=== PATIENT | male | born 1990 | race Caucasian/White ===

== ENCOUNTER 2019-06-20 10:24 | Inpatient (IN) | payer BC ==
[~2019-06-20] VITALS: Ht 175.3 cm; Wt 93.2 kg
[~2019-06-20 10:24] MED LIST: ALBU8HFA PO
[2019-06-20 11:00] LABS: CLARITY,URINE CLOUDY (Clear); COLOR,URINE AMBER (Yellow); GLUCOSE, URINE NEGATIVE (Neg); KETONES,URINE >=80 mg/dl (Neg); LEUKOCYTE ESTERASE ,URINE NEGATIVE (Neg); OCCULT BLOOD,URINE NEGATIVE (Neg); PROTEIN,URINE >=300 mg/dl (Neg)
[2019-06-20 11:01] LABS: NITRITES, URINE NEGATIVE (Neg); UA COLLECTION TYPE CLN CATCH MIDSTREAM
[2019-06-20 11:05] LABS: BASOPHILS % (AUTO) 0.2 % (0-1); EOSINOPHILS % (AUTO) 0 % (0-6); HEMATOCRIT 48.6 % (42.0-52.0); HEMOGLOBIN 17.2 g/dl (14.0-17.9); LYMPHOCYTES # (AUTO) 0.7 X10'3 (1.1-4.8); LYMPHOCYTES % (AUTO) 4.2 % (21-51); MEAN CORPUSCULAR HEMOGLOBIN 34.5 PG (27.0-31.0); MEAN CORPUSCULAR HGB CONC 35.4 g/dL (33.0-36.5); MEAN CORPUSCULAR VOLUME 97.3 FL (78-98); MEAN PLATELET VOLUME 7.9 FL (7.4-10.4); MONOCYTES # (AUTO) 1.1 X10'3 (0-0.9); MONOCYTES % (AUTO) 6.4 % (2-12); NEUTROPHILS # (AUTO) 15.1 X10'3 (1.8-7.7); NEUTROPHILS % (AUTO) 89.2 % (42-75); PLATELET COUNT 261 X10'3 (140-440); RED CELL DISTRIBUTION WIDTH 13.2 % (11.5-14.5)
[2019-06-20 11:07] LABS: COARSE GRANULAR CAST 0-3 /LPF (NEGATIVE); MUCUS STRANDS MANY /LPF (Neg); SQUAMOUS EPITHELIAL CELL,UR FEW /LPF (FEW)
[2019-06-20 11:08] LABS: BACTERIA,URINE NONE SEEN /HPF (Neg); RBC,URINE 0-2 /HPF (0-2); TRANSITIONAL EPI CELLS,URINE FEW /HPF; WBC,URINE 0-4 /HPF (0-4)
[2019-06-20 11:14] LABS: ALANINE AMINOTRANSFERASE 33 U/L (12-78); ALBUMIN 4.7 G/DL (3.4-5.0); ALBUMIN/GLOBULIN RATIO 1.3 (1.1-1.5); ALKALINE PHOSPHATASE 100 IU/L (46-116); ANION GAP 17 (8-16); ASPARTATE AMINO TRANSFERASE 24 U/L (10-37); BILIRUBIN,TOTAL 2.4 MG/DL (0.1-1.0); BLOOD UREA NITROGEN 20 MG/DL (7-18); BUN/CREATININE RATIO 18.2 (5.4-32.0); CHLORIDE 97 MMOL/L (99-107); GLUCOSE 131 MG/DL (70-104); POTASSIUM 4.1 MMOL/L (3.5-5.1); SODIUM 136 MMOL/L (135-145); TOTAL CARBON DIOXIDE 22.2 MMOL/L (24-32); TOTAL PROTEIN 8.3 G/DL (6.4-8.2); eGFR 80 ML/MIN
[2019-06-20 11:16] LABS: AMYLASE 291 U/L (25-115)
[2019-06-20] MEDS ORDERED: normal saline 1000ML IV soln IVB ONE (11:20)
[2019-06-20] MEDS ORDERED: ketorolac trometh. 30mg/ml inj. IV ONE (11:20)
[2019-06-20] MEDS ORDERED: morphine 4 MG/ML inj SYRINge IV PRN (11:20)
[2019-06-20] MEDS ORDERED: ondansetron/PF 4mg/2ml inj IV ONE (11:20)
[2019-06-20 11:25] LABS: LIPASE 4797 U/L (73-393)
[2019-06-20] MEDS ORDERED: piperacillin/tazo 3.375gm/50ml 50 ML IV ONE (11:50)
[2019-06-20] MEDS ORDERED: morphine 4 MG/ML inj SYRINge IV ONE (11:50)
[2019-06-20] MEDS ORDERED: acetaminophen 325mg tablet PO PRN (12:05)
[2019-06-20] MEDS ORDERED: metoclopramide 5 mg/ml inj IV PRN (12:05)
[2019-06-20] MEDS: normal saline 1000ml 1,000 ML IV SCH ×3 (12:05→21:01)
[2019-06-20] MEDS ORDERED: mag hydrox/Alum hydrox/simeth 30ml oral suspension PO PRN (12:05)
[2019-06-20] MEDS ORDERED: ondansetron/PF 4mg/2ml inj IV PRN (12:05)
[2019-06-20] MEDS ORDERED: magnesium hydroxide 30ml (MOM) UD suspension PO PRN (12:05)
[2019-06-20] MEDS ORDERED: iohexol 300mg/ml 100ml inj. ONE (12:18)
[2019-06-20] MEDS ORDERED: NO HOME MEDS (12:32)
[2019-06-20] MEDS: pantoprazole 40 MG vial IV SCH (13:46)
[2019-06-20 14:10] VITALS: BP 154/94
--- NOTE | 2019-06-20 14:35 | NUR ---
Patient in room [facility]. I have received report from Jigna CARLIN and had the opportunity to ask questions and assume patient care.
--- NOTE | 2019-06-20 14:45 | NUR ---
Patient in room [facility]. I have received report from RAEGAN Grove and had the opportunity to ask questions and assume patient care.
[2019-06-20] MEDS: morphine 2 MG/ML inj. syringe IV PRN (16:59)
[2019-06-20] MEDS ORDERED: thiamine 100mg/ml 2ml inj. IV ONE (17:05)
[2019-06-20] MEDS ORDERED: dextrose 50%-water 50ml dispensing syringe IV PRN (17:05)
--- NOTE | 2019-06-20 17:23 | NUR ---
REVIEWED HOME MORTGAGE DISCLOSURE ACT SPECIALIST CHARTING
--- NOTE | 2019-06-20 17:44 | NUR ---
Patient report given, questions answered & plan of care reviewed with RAEGAN Grove.
[2019-06-20] MEDS ORDERED: thiamine inj. 100 MG in normal saline 100ml IV soln 99 ML IV ONE (17:45)
[2019-06-20 18:30] VITALS: BP 162/112
--- NOTE | 2019-06-20 18:30 | NUR ---
Patient in room [facility]. I have received report from Maine CARLIN and had the opportunity to ask questions and assume patient care. Addendum: 06/20/19 at 2146 by Alka Guerrero RN Day nurse advised that there was a thiamine order that still needed to be clarified by pharmacy that she was awaiting.
--- NOTE | 2019-06-20 19:00 | NUR ---
Pharmacy advised to infuse the thiamine in IV bag of NS.
[2019-06-20] MEDS: LORazepam 2 mg/ml vial IV PRN (19:05)
[2019-06-20] MEDS: heparin, porcine 5000 units/ml vial SQ SCH (19:19)
[2019-06-20] MEDS ORDERED: clonazePAM 0.5mg tablet PO ONE (20:20)
--- NOTE | 2019-06-20 20:21 | NUR ---
Patient has elevated BP which did not resolve with ativan earlier. New order for clonidine 0.5mg now.
[2019-06-20] MEDS ORDERED: cloNIDine 0.1 mg tablet PO ONE (20:30)
[2019-06-20 21:00] VITALS: BP 146/104
--- NOTE | 2019-06-20 21:50 | NUR ---
Patients' BP came down on recheck at 2100, BP 146/104, pulse 89. Will continue to monitor.
[2019-06-21] VITALS: BP 146/100
[2019-06-21] MEDS: morphine 2 MG/ML inj. syringe IV PRN ×6 (00:11→19:49)
[2019-06-21] MEDS: normal saline 1000ml 1,000 ML IV SCH ×3 (02:40→21:25)
[2019-06-21] MEDS: LORazepam 2 mg/ml vial IV PRN ×4 (02:58→19:51)
[2019-06-21 04:00] VITALS: BP 148/101
[2019-06-21 05:14] LABS: BASOPHILS % (AUTO) 0.1 % (0-1); EOSINOPHILS # (AUTO) 0.1 X10'3 (0-0.9); EOSINOPHILS % (AUTO) 1.3 % (0-6); HEMATOCRIT 39.2 % (42.0-52.0); HEMOGLOBIN 13.8 g/dl (14.0-17.9); LYMPHOCYTES # (AUTO) 1.1 X10'3 (1.1-4.8); LYMPHOCYTES % (AUTO) 11.9 % (21-51); MEAN CORPUSCULAR HEMOGLOBIN 34.8 PG (27.0-31.0); MEAN CORPUSCULAR HGB CONC 35.2 g/dL (33.0-36.5); MEAN CORPUSCULAR VOLUME 98.7 FL (78-98); MEAN PLATELET VOLUME 8.2 FL (7.4-10.4); MONOCYTES # (AUTO) 0.7 X10'3 (0-0.9); MONOCYTES % (AUTO) 7.1 % (2-12); NEUTROPHILS # (AUTO) 7.5 X10'3 (1.8-7.7); NEUTROPHILS % (AUTO) 79.6 % (42-75); PLATELET COUNT 151 X10'3 (140-440); RED BLOOD COUNT 3.97 X10'6 (4.70-6.10); WHITE BLOOD COUNT 9.4 X10'3 (4.5-11.0)
[2019-06-21 05:33] LABS: ALANINE AMINOTRANSFERASE 24 U/L (12-78); ALBUMIN 3.1 G/DL (3.4-5.0); ALKALINE PHOSPHATASE 66 IU/L (46-116); ANION GAP 10 (8-16); ASPARTATE AMINO TRANSFERASE 20 U/L (10-37); BILIRUBIN,TOTAL 1.1 MG/DL (0.1-1.0); BLOOD UREA NITROGEN 12 MG/DL (7-18); BUN/CREATININE RATIO 13.8 (5.4-32.0); CALCIUM 8.1 MG/DL (8.5-10.1); CHLORIDE 106 MMOL/L (99-107); CREATININE 0.87 MG/DL (0.60-1.10); GLUCOSE 87 MG/DL (70-104); POTASSIUM 3.5 MMOL/L (3.5-5.1); SODIUM 139 MMOL/L (135-145); TOTAL CARBON DIOXIDE 23.4 MMOL/L (24-32); TOTAL PROTEIN 6.1 G/DL (6.4-8.2); eGFR > 90 ML/MIN
--- NOTE | 2019-06-21 06:25 | NUR ---
Patient in room [facility]. I have received report from Destinee CARLIN and had the opportunity to ask questions and assume patient care. Addendum: 06/21/19 at 0639 by Maine Finn RN Patient in room [facility]. I have received report from Alka CARLIN and had the opportunity to ask questions and assume patient care.
--- NOTE | 2019-06-21 06:36 | NUR ---
Problems reprioritized. Patient report given, questions answered & plan of care reviewed with Maine CARLIN.
[2019-06-21] MEDS: pantoprazole 40 MG vial IV SCH (07:58)
[2019-06-21] MEDS: MVI, adult No.4 with vit. K 10 ML in dextrose 5% water 500ml 500 ML IV SCH ×2 (07:59)
[2019-06-21 08:00] VITALS: BP 154/113
[2019-06-21] MEDS ORDERED: NORMAL SALINE IV SCH (08:00)
[2019-06-21] MEDS ORDERED: thiamine inj. 100 MG, folic acid inj. 2 MG in normal saline 100ml IV soln 100 ML IV ONE (08:00)
[2019-06-21] MEDS: heparin, porcine 5000 units/ml vial SQ SCH ×2 (08:00→19:21)
[2019-06-21] MEDS ORDERED: FOLIC ACID IV SCH (08:00)
[2019-06-21] MEDS ORDERED: FLU VACC QS2019-20 36MOS UP/PF 60 MCG/0.5 ML SYRINGE IMVAC ONE (10:00)
[2019-06-21 11:00] VITALS: BP 154/101
--- NOTE | 2019-06-21 11:30 | NUR ---
Pt has blood pressure of 0800 154/113 HR 98 & 1100 154/[address] Plascencia is aware. Asked Dr. Plascencia if he wanted to give some HTN meds. does not want to treat because he feels is from ETOH withdraws.
--- NOTE | 2019-06-21 12:18 | NUR ---
Patient in room [facility]. I have received report from [place] and had the opportunity to ask questions and assume patient care. Addendum: 06/21/19 at 1218 by Jasbir CLEMENT Amended: Links added.
[2019-06-21 16:10] VITALS: BP 146/100
--- NOTE | 2019-06-21 16:36 | NUR ---
reviewed student nurse charting
--- NOTE | 2019-06-21 18:13 | NUR ---
Patient in room [facility]. I have received report from Maine CARLIN and had the opportunity to ask questions and assume patient care.
[2019-06-21 18:30] VITALS: BP 157/97
--- NOTE | 2019-06-21 18:34 | NUR ---
Problems reprioritized. Patient report given, questions answered & plan of care reviewed with Alka CARLIN.
[2019-06-22] VITALS: BP 141/105
[2019-06-22] MEDS: LORazepam 2 mg/ml vial IV PRN ×6 (01:16→17:00)
[2019-06-22] MEDS: normal saline 1000ml 1,000 ML IV SCH ×3 (01:16→17:00)
[2019-06-22 05:12] LABS: BASOPHILS % (AUTO) 0.2 % (0-1); EOSINOPHILS # (AUTO) 0.2 X10'3 (0-0.9); EOSINOPHILS % (AUTO) 2.3 % (0-6); HEMATOCRIT 38.1 % (42.0-52.0); HEMOGLOBIN 13.6 g/dl (14.0-17.9); LYMPHOCYTES # (AUTO) 1.4 X10'3 (1.1-4.8); LYMPHOCYTES % (AUTO) 15.1 % (21-51); MEAN CORPUSCULAR HEMOGLOBIN 34.8 PG (27.0-31.0); MEAN CORPUSCULAR HGB CONC 35.7 g/dL (33.0-36.5); MEAN CORPUSCULAR VOLUME 97.3 FL (78-98); MEAN PLATELET VOLUME 8.2 FL (7.4-10.4); MONOCYTES # (AUTO) 0.7 X10'3 (0-0.9); MONOCYTES % (AUTO) 7.5 % (2-12); NEUTROPHILS # (AUTO) 7.2 X10'3 (1.8-7.7); NEUTROPHILS % (AUTO) 74.9 % (42-75); PLATELET COUNT 164 X10'3 (140-440); RED BLOOD COUNT 3.91 X10'6 (4.70-6.10); RED CELL DISTRIBUTION WIDTH 12.7 % (11.5-14.5); WHITE BLOOD COUNT 9.6 X10'3 (4.5-11.0)
[2019-06-22 05:29] LABS: ALANINE AMINOTRANSFERASE 21 U/L (12-78); ALBUMIN 2.9 G/DL (3.4-5.0); ALBUMIN/GLOBULIN RATIO 0.9 (1.1-1.5); ALKALINE PHOSPHATASE 63 IU/L (46-116); ANION GAP 9 (8-16); ASPARTATE AMINO TRANSFERASE 15 U/L (10-37); BILIRUBIN,TOTAL 0.8 MG/DL (0.1-1.0); BLOOD UREA NITROGEN 3 MG/DL (7-18); BUN/CREATININE RATIO 3.9 (5.4-32.0); CALCIUM 8.5 MG/DL (8.5-10.1); CHLORIDE 104 MMOL/L (99-107); CREATININE 0.77 MG/DL (0.60-1.10); GLUCOSE 87 MG/DL (70-104); POTASSIUM 3.4 MMOL/L (3.5-5.1); SODIUM 137 MMOL/L (135-145); TOTAL CARBON DIOXIDE 24.2 MMOL/L (24-32); TOTAL PROTEIN 6.2 G/DL (6.4-8.2); eGFR > 90 ML/MIN
[2019-06-22 05:30] LABS: LIPASE 1878 U/L (73-393)
--- NOTE | 2019-06-22 06:33 | NUR ---
Problems reprioritized. Patient report given, questions answered & plan of care reviewed with Bobo gonsalves.
[2019-06-22] MEDS: MVI, adult No.4 with vit. K 10 ML in dextrose 5% water 500ml 500 ML IV SCH ×2 (07:08)
[2019-06-22] MEDS: heparin, porcine 5000 units/ml vial SQ SCH ×2 (07:08→19:32)
[2019-06-22] MEDS: pantoprazole 40 MG vial IV SCH (07:09)
[2019-06-22 07:36] VITALS: BP 144/99
[2019-06-22] MEDS: morphine 2 MG/ML inj. syringe IV PRN ×3 (08:26→19:33)
[2019-06-22] MEDS ORDERED: FLU VACC QS2019-20 36MOS UP/PF 60 MCG/0.5 ML SYRINGE IMVAC ONE (10:50)
[2019-06-22 11:00] VITALS: BP 150/106
[2019-06-22] MEDS ORDERED: magnesium 4gm in 100ml NS 100 ML IV PRN (11:30)
[2019-06-22] MEDS ORDERED: potassium Cl 20 mEq SR tablet PO PRN (11:30)
[2019-06-22] MEDS ORDERED: magnesium Cl slow-release 64mg tablet PO PRN (11:30)
[2019-06-22] MEDS ORDERED: potassium CL 10mEq/100ml bag 100 ML IV PRN (11:30)
[2019-06-22] MEDS ORDERED: nicotine 14mg patch - 24hr TD SCH (11:30)
[2019-06-22] MEDS: potassium Cl 20 mEq SR tablet PO PRN ×3 (13:01→22:14)
[2019-06-22] MEDS ORDERED: LORazepam 2 mg/ml vial IV PRN (17:05)
--- NOTE | 2019-06-22 18:18 | NUR ---
Patient in room [facility]. I have received report from Krystal CARLIN and had the opportunity to ask questions and assume patient care.
--- NOTE | 2019-06-22 18:21 | NUR ---
Problems reprioritized. Patient report given, questions answered & plan of care reviewed with RAEGAN Rucker.
[2019-06-22 18:30] VITALS: BP 151/112
[2019-06-22] MEDS: nicotine 21mg patch - 24 hr TD SCH (22:14)
[2019-06-22] MEDS: LORazepam 1 MG tablet PO PRN (22:14)
[2019-06-23] VITALS: BP 150/105
[2019-06-23] MEDS: normal saline 1000ml 1,000 ML IV SCH ×4 (00:14→22:01)
[2019-06-23] MEDS: morphine 2 MG/ML inj. syringe IV PRN ×3 (01:08→12:04)
[2019-06-23] MEDS: LORazepam 1 MG tablet PO PRN ×5 (04:19→23:03)
[2019-06-23 05:09] LABS: BASOPHILS % (AUTO) 0.1 % (0-1); EOSINOPHILS # (AUTO) 0.2 X10'3 (0-0.9); EOSINOPHILS % (AUTO) 2.8 % (0-6); HEMATOCRIT 38.2 % (42.0-52.0); HEMOGLOBIN 13.6 g/dl (14.0-17.9); LYMPHOCYTES # (AUTO) 1.5 X10'3 (1.1-4.8); MEAN CORPUSCULAR HEMOGLOBIN 35.1 PG (27.0-31.0); MEAN CORPUSCULAR HGB CONC 35.5 g/dL (33.0-36.5); MEAN CORPUSCULAR VOLUME 98.9 FL (78-98); MEAN PLATELET VOLUME 8.4 FL (7.4-10.4); MONOCYTES # (AUTO) 0.6 X10'3 (0-0.9); MONOCYTES % (AUTO) 7.7 % (2-12); NEUTROPHILS % (AUTO) 71.4 % (42-75); PLATELET COUNT 181 X10'3 (140-440); RED BLOOD COUNT 3.86 X10'6 (4.70-6.10); RED CELL DISTRIBUTION WIDTH 12.6 % (11.5-14.5); WHITE BLOOD COUNT 8.4 X10'3 (4.5-11.0)
[2019-06-23 05:22] LABS: ALANINE AMINOTRANSFERASE 19 U/L (12-78); ALBUMIN 2.8 G/DL (3.4-5.0); ALBUMIN/GLOBULIN RATIO 0.8 (1.1-1.5); ALKALINE PHOSPHATASE 79 IU/L (46-116); ANION GAP 8 (8-16); ASPARTATE AMINO TRANSFERASE 22 U/L (10-37); BILIRUBIN,TOTAL 0.5 MG/DL (0.1-1.0); BLOOD UREA NITROGEN 4 MG/DL (7-18); BUN/CREATININE RATIO 4.5 (5.4-32.0); CALCIUM 8.6 MG/DL (8.5-10.1); CHLORIDE 105 MMOL/L (99-107); CREATININE 0.88 MG/DL (0.60-1.10); GLUCOSE 85 MG/DL (70-104); POTASSIUM 4.2 MMOL/L (3.5-5.1); SODIUM 139 MMOL/L (135-145); TOTAL PROTEIN 6.3 G/DL (6.4-8.2); eGFR > 90 ML/MIN
--- NOTE | 2019-06-23 06:49 | NUR ---
Reported off to Kristie CARLIN
--- NOTE | 2019-06-23 06:53 | NUR ---
Patient in room [facility]. I have received report from Alka CARLIN and had the opportunity to ask questions and assume patient care.
[2019-06-23 07:00] VITALS: BP 163/121
[2019-06-23] MEDS: multivitamins, therapeutics tablet PO SCH (07:33)
[2019-06-23] MEDS: heparin, porcine 5000 units/ml vial SQ SCH ×2 (07:34→19:07)
[2019-06-23] MEDS: pantoprazole 40mg Tablet.DR PO SCH (07:34)
[2019-06-23] MEDS: nicotine 21mg patch - 24 hr TD SCH (07:35)
--- NOTE | 2019-06-23 09:04 | NUR ---
8am blood sugar was not checked until 0859 after eating FL breakfast tray and value was elevated at 151.
[2019-06-23 09:41] VITALS: BP 153/101
[2019-06-23 11:30] LABS: LIPASE 2103 U/L (73-393)
[2019-06-23 11:57] VITALS: BP_SYST 101; BP_SYST 161; BP_DIAS 104
--- NOTE | 2019-06-23 16:15 | NUR ---
Student documentation: I have reviewed all interventions, assessments performed and documented by Deena LAND
[2019-06-23] MEDS: HYDROmorphone inj. 0.5 MG/0.5 ML DISP.SYRIN IV PRN ×2 (16:59→22:02)
[2019-06-23 18:15] VITALS: BP 152/105
--- NOTE | 2019-06-23 18:19 | NUR ---
Patient in room [facility]. I have received report from RAEGAN Flowers and had the opportunity to ask questions and assume patient care.
--- NOTE | 2019-06-23 18:23 | NUR ---
Checo charted on wrong patient. Error. Disregard. Addendum: 06/23/19 at 1824 by Kristie Norris RN Amended: Links added.
--- NOTE | 2019-06-23 18:26 | NUR ---
Problems reprioritized. Patient report given, questions answered & plan of care reviewed with Maria Del Carmen CARLIN.
[2019-06-23] MEDS: mirtazapine 15mg tablet PO SCH (21:59)
[2019-06-24 00:15] VITALS: BP 155/115
[2019-06-24] MEDS: HYDROmorphone inj. 0.5 MG/0.5 ML DISP.SYRIN IV PRN ×5 (02:55→21:21)
[2019-06-24] MEDS: LORazepam 1 MG tablet PO PRN ×5 (03:31→23:37)
[2019-06-24] MEDS: normal saline 1000ml 1,000 ML IV SCH ×5 (03:32→23:33)
[2019-06-24 05:28] LABS: ALANINE AMINOTRANSFERASE 29 U/L (12-78); ALBUMIN 2.9 G/DL (3.4-5.0); ALBUMIN/GLOBULIN RATIO 0.9 (1.1-1.5); ALKALINE PHOSPHATASE 85 IU/L (46-116); ANION GAP 10 (8-16); ASPARTATE AMINO TRANSFERASE 29 U/L (10-37); BILIRUBIN,TOTAL 0.5 MG/DL (0.1-1.0); BLOOD UREA NITROGEN 4 MG/DL (7-18); BUN/CREATININE RATIO 4.8 (5.4-32.0); CHLORIDE 106 MMOL/L (99-107); CREATININE 0.84 MG/DL (0.60-1.10); GLUCOSE 82 MG/DL (70-104); POTASSIUM 3.7 MMOL/L (3.5-5.1); SODIUM 140 MMOL/L (135-145); TOTAL PROTEIN 6.3 G/DL (6.4-8.2); eGFR > 90 ML/MIN
[2019-06-24 05:29] LABS: LIPASE 1803 U/L (73-393)
[2019-06-24 05:50] LABS: BASOPHILS # (AUTO) 0.1 X10'3 (0-0.2); EOSINOPHILS # (AUTO) 0.2 X10'3 (0-0.9); EOSINOPHILS % (AUTO) 2.6 % (0-6); HEMATOCRIT 36.3 % (42.0-52.0); HEMOGLOBIN 12.6 g/dl (14.0-17.9); LYMPHOCYTES # (AUTO) 1.5 X10'3 (1.1-4.8); LYMPHOCYTES % (AUTO) 20.7 % (21-51); MEAN CORPUSCULAR HEMOGLOBIN 34.4 PG (27.0-31.0); MEAN CORPUSCULAR HGB CONC 34.7 g/dL (33.0-36.5); MEAN CORPUSCULAR VOLUME 99.3 FL (78-98); MEAN PLATELET VOLUME 7.7 FL (7.4-10.4); MONOCYTES # (AUTO) 0.6 X10'3 (0-0.9); MONOCYTES % (AUTO) 8.9 % (2-12); NEUTROPHILS # (AUTO) 4.8 X10'3 (1.8-7.7); NEUTROPHILS % (AUTO) 66.8 % (42-75); PLATELET COUNT 199 X10'3 (140-440); RED BLOOD COUNT 3.65 X10'6 (4.70-6.10); RED CELL DISTRIBUTION WIDTH 12.7 % (11.5-14.5); WHITE BLOOD COUNT 7.2 X10'3 (4.5-11.0)
--- NOTE | 2019-06-24 06:37 | NUR ---
Problems reprioritized. Patient report given, questions answered & plan of care reviewed with RAEGAN Moran.
[2019-06-24 07:00] VITALS: BP 135/105
[2019-06-24] MEDS: nicotine 21mg patch - 24 hr TD SCH (07:22)
[2019-06-24] MEDS: pantoprazole 40mg Tablet.DR PO SCH (07:22)
[2019-06-24] MEDS: heparin, porcine 5000 units/ml vial SQ SCH ×2 (07:23→20:53)
[2019-06-24] MEDS: multivitamins, therapeutics tablet PO SCH (07:25)
[2019-06-24 11:00] VITALS: BP 139/99
[2019-06-24 16:18] VITALS: BP 154/97
[2019-06-24] MEDS ORDERED: LORazepam 2 mg/ml vial IV PRN (17:05)
[2019-06-24 18:00] VITALS: BP 140/80
--- NOTE | 2019-06-24 18:47 | NUR ---
Problems reprioritized. Patient report given, questions answered & plan of care reviewed with Pat RN.
[2019-06-24] MEDS: mirtazapine 15mg tablet PO SCH (20:53)
[2019-06-25] VITALS: BP 138/98
[2019-06-25] MEDS: HYDROmorphone inj. 0.5 MG/0.5 ML DISP.SYRIN IV PRN ×4 (01:36→19:41)
[2019-06-25 05:19] LABS: BASOPHILS % (AUTO) 0.3 % (0-1); EOSINOPHILS # (AUTO) 0.2 X10'3 (0-0.9); EOSINOPHILS % (AUTO) 2.9 % (0-6); HEMATOCRIT 36.2 % (42.0-52.0); HEMOGLOBIN 12.8 g/dl (14.0-17.9); LYMPHOCYTES # (AUTO) 1.8 X10'3 (1.1-4.8); LYMPHOCYTES % (AUTO) 23.7 % (21-51); MEAN CORPUSCULAR HEMOGLOBIN 35.3 PG (27.0-31.0); MEAN CORPUSCULAR HGB CONC 35.3 g/dL (33.0-36.5); MEAN CORPUSCULAR VOLUME 100.1 FL (78-98); MEAN PLATELET VOLUME 7.9 FL (7.4-10.4); MONOCYTES # (AUTO) 0.8 X10'3 (0-0.9); MONOCYTES % (AUTO) 10.1 % (2-12); NEUTROPHILS # (AUTO) 4.7 X10'3 (1.8-7.7); PLATELET COUNT 252 X10'3 (140-440); RED BLOOD COUNT 3.62 X10'6 (4.70-6.10); RED CELL DISTRIBUTION WIDTH 12.6 % (11.5-14.5); WHITE BLOOD COUNT 7.5 X10'3 (4.5-11.0)
[2019-06-25 05:22] LABS: ALANINE AMINOTRANSFERASE 49 U/L (12-78); ALBUMIN 2.9 G/DL (3.4-5.0); ALBUMIN/GLOBULIN RATIO 0.9 (1.1-1.5); ALKALINE PHOSPHATASE 102 IU/L (46-116); ANION GAP 8 (8-16); ASPARTATE AMINO TRANSFERASE 44 U/L (10-37); BILIRUBIN,TOTAL 0.3 MG/DL (0.1-1.0); BLOOD UREA NITROGEN 5 MG/DL (7-18); BUN/CREATININE RATIO 5.5 (5.4-32.0); CALCIUM 8.9 MG/DL (8.5-10.1); CHLORIDE 106 MMOL/L (99-107); CREATININE 0.91 MG/DL (0.60-1.10); GLUCOSE 89 MG/DL (70-104); POTASSIUM 3.8 MMOL/L (3.5-5.1); SODIUM 141 MMOL/L (135-145); TOTAL CARBON DIOXIDE 26.6 MMOL/L (24-32); TOTAL PROTEIN 6.3 G/DL (6.4-8.2); eGFR > 90 ML/MIN
[2019-06-25] MEDS: normal saline 1000ml 1,000 ML IV SCH ×3 (05:53→20:58)
--- NOTE | 2019-06-25 06:41 | NUR ---
Problems reprioritized. Patient report given, questions answered & plan of care reviewed with RAEGAN Hogan. Addendum: 06/25/19 at 0643 by Samia Karimi RN Patient in room [facility]. I have received report from RAEGAN Hogan and had the opportunity to ask questions and assume patient care.
[2019-06-25 07:00] VITALS: BP 151/104
[2019-06-25] MEDS: nicotine 21mg patch - 24 hr TD SCH (07:25)
[2019-06-25] MEDS: pantoprazole 40mg Tablet.DR PO SCH (07:25)
[2019-06-25] MEDS: multivitamins, therapeutics tablet PO SCH (07:25)
[2019-06-25] MEDS: heparin, porcine 5000 units/ml vial SQ SCH ×2 (07:26→19:41)
[2019-06-25] MEDS: LORazepam 1 MG tablet PO PRN ×3 (09:20→23:09)
[2019-06-25 11:00] VITALS: BP 150/98
--- NOTE | 2019-06-25 18:26 | NUR ---
Problems reprioritized. Patient report given, questions answered & plan of care reviewed with RAEGAN DREW.
--- NOTE | 2019-06-25 18:57 | NUR ---
Initial: Pt admitted for acute pancreatitis r/t alcoholism. Pt currently not on alcohol protocol, may benefit from thiamine and folic acid supplement, notified. RD spoke with pt and mom at bedside, provided written education on pancreatitis with verbal review. RD emphasized a low fat diet and to refrain from alcohol consumption to prevent pancreatitis from occurring in the future. Pt advanced to full liquid diet today, PO intake 100%; however clear liquid x4 days avg 50-75%, pt reports abdominal pain is improved, appeared to have good appetite, observed eating food on dinner tray. LBM 06/23, pt agrees to prune juice for breakfast, d/w dietary. If constipation continues, pt may benefit from additional bowel care. Will continue to monitor PO intake as diet advances as medically indicated. Recommendation: 1. advance diet as medically indicated to low fat diet 2. routine bowel care 3. thiamine and folic acid, notified 4. weight per rx Addendum: 06/25/19 at 1856 by Wing Bryce GOVEA Amended: Links added. Addendum: 06/25/19 at [address] RD agree with international marketing coordinator note
[2019-06-25 19:00] VITALS: BP 159/108
[2019-06-25] MEDS: mirtazapine 15mg tablet PO SCH (20:59)
[2019-06-25] MEDS: hydrALAZINE 20mg/ml inj. IV PRN (23:50)
[2019-06-26] VITALS: BP 159/113
[2019-06-26] MEDS ORDERED: zolpidem 5mg tablet PO PRN
[2019-06-26] MEDS: normal saline 1000ml 1,000 ML IV SCH (03:21)
--- NOTE | 2019-06-26 06:10 | NUR ---
Problems reprioritized. Patient report given, questions answered & plan of care reviewed with Ally CARLIN Addendum: 06/26/19 at 0611 by Phuong Yates RN Amended: Links added.
--- NOTE | 2019-06-26 06:20 | NUR ---
Patient in room [facility]. I have received report from RAEGAN Baca and had the opportunity to ask questions and assume patient care.
[2019-06-26 06:30] VITALS: BP 152/108
[2019-06-26] MEDS: heparin, porcine 5000 units/ml vial SQ SCH (08:34)
[2019-06-26] MEDS: multivitamins, therapeutics tablet PO SCH (08:36)
[2019-06-26] MEDS: nicotine 21mg patch - 24 hr TD SCH (08:36)
[2019-06-26] MEDS: hydrALAZINE 20mg/ml inj. IV PRN (08:36)
[2019-06-26] MEDS: pantoprazole 40mg Tablet.DR PO SCH (08:36)
[2019-06-26] MEDS: LORazepam 1 MG tablet PO PRN (08:45)
[2019-06-26] MEDS ORDERED: NICO-687 TD (10:39)
[2019-06-26] MEDS ORDERED: FOLI0.4T2 PO (10:39)
[2019-06-26] MEDS ORDERED: MULT-1179 PO (10:39)
[2019-06-26] MEDS ORDERED: SERT50TA PO (10:39)
[2019-06-26] MEDS ORDERED: CHLO25CA10 PO (10:39)
[2019-06-26] MEDS ORDERED: THIA100T66 PO (10:39)
[2019-06-26] MEDS ORDERED: acetaminophen 325mg tablet PO PRN (10:40)
[2019-06-26 11:00] VITALS: BP 158/100
[2019-06-26 11:04] LABS: BASOPHILS # (AUTO) 0.1 X10'3 (0-0.2); BASOPHILS % (AUTO) 0.6 % (0-1); EOSINOPHILS # (AUTO) 0.2 X10'3 (0-0.9); EOSINOPHILS % (AUTO) 1.5 % (0-6); HEMATOCRIT 41.1 % (42.0-52.0); HEMOGLOBIN 14.5 g/dl (14.0-17.9); LYMPHOCYTES # (AUTO) 1.1 X10'3 (1.1-4.8); MEAN CORPUSCULAR HEMOGLOBIN 34.2 PG (27.0-31.0); MEAN CORPUSCULAR HGB CONC 35.2 g/dL (33.0-36.5); MEAN CORPUSCULAR VOLUME 97.4 FL (78-98); MEAN PLATELET VOLUME 7.9 FL (7.4-10.4); MONOCYTES # (AUTO) 0.7 X10'3 (0-0.9); MONOCYTES % (AUTO) 5.5 % (2-12); NEUTROPHILS # (AUTO) 10.4 X10'3 (1.8-7.7); NEUTROPHILS % (AUTO) 83.4 % (42-75); PLATELET COUNT 293 X10'3 (140-440); RED BLOOD COUNT 4.22 X10'6 (4.70-6.10); RED CELL DISTRIBUTION WIDTH 12.6 % (11.5-14.5); WHITE BLOOD COUNT 12.5 X10'3 (4.5-11.0)
[2019-06-26 11:23] LABS: ALANINE AMINOTRANSFERASE 95 U/L (12-78); ALBUMIN 3.6 G/DL (3.4-5.0); ALBUMIN/GLOBULIN RATIO 0.9 (1.1-1.5); ALKALINE PHOSPHATASE 123 IU/L (46-116); ANION GAP 11 (8-16); ASPARTATE AMINO TRANSFERASE 54 U/L (10-37); BILIRUBIN,TOTAL 0.3 MG/DL (0.1-1.0); BLOOD UREA NITROGEN 8 MG/DL (7-18); BUN/CREATININE RATIO 8.4 (5.4-32.0); CALCIUM 9.8 MG/DL (8.5-10.1); CHLORIDE 103 MMOL/L (99-107); CREATININE 0.95 MG/DL (0.60-1.10); GLUCOSE 111 MG/DL (70-104); POTASSIUM 4.3 MMOL/L (3.5-5.1); SODIUM 139 MMOL/L (135-145); TOTAL CARBON DIOXIDE 25.4 MMOL/L (24-32); TOTAL PROTEIN 7.4 G/DL (6.4-8.2); eGFR > 90 ML/MIN
[2019-06-26 11:24] LABS: LIPASE 1929 U/L (73-393)
--- NOTE | 2019-06-26 13:20 | NUR ---
DC inst provided to pt & pt's . IV DC'd, tip intact. All belongings sent w/pt. Pt ambulated to front lobby.
== END 2019-06-26 13:20 | disposition home or self-care (01) | DRG 439 ==
LOC: ER 10:24 → ED HOLD 12:13 → SUR 3N 13:28
PROVIDERS: ADMIT Family Medicine; ATTEND Family Medicine
DX: K85.20 Alcohol induced acute pancreatitis without necrosis or infection (principal); E87.2 Acidosis; R65.10 Systemic inflammatory response syndrome (SIRS) of non-infectious origin without acute organ dysfunction; F17.210 Nicotine dependence, cigarettes, uncomplicated; F32.9 Major depressive disorder, single episode, unspecified; Z23 Encounter for immunization
CPT/HCPCS: 36415; 74177; 80053; 81001; 82150; 82948; 83605; 83690; 84145; 85025; 87040; 87081; 99285; C9113; G0378; J0360; J1170; J1644; J1885; J2060; J2270; J2405; J2543; J3411; J3490; J7030; J7060; Q2037; Q9967

== ENCOUNTER 2020-02-18 15:11 | Inpatient (IN) | payer BC ==
[~2020-02-18] VITALS: Ht 172.7 cm; Wt 110.0 kg
[~2020-02-18 15:11] MED LIST changes: -ALBU8HFA PO; +CHLO25CA10 PO; +MULT-25 PO; +NICO-687 TD; +THIA100T66 PO
[2020-02-18 15:31] LABS: BASOPHILS # (AUTO) 0.1 X10'3 (0-0.2); BASOPHILS % (AUTO) 0.5 % (0-1); EOSINOPHILS # (AUTO) 0.1 X10'3 (0-0.9); EOSINOPHILS % (AUTO) 0.5 % (0-6); HEMATOCRIT 45.6 % (42.0-52.0); HEMOGLOBIN 16.2 g/dl (14.0-17.9); LYMPHOCYTES # (AUTO) 1.9 X10'3 (1.1-4.8); MEAN CORPUSCULAR HEMOGLOBIN 33.4 PG (27.0-31.0); MEAN CORPUSCULAR HGB CONC 35.5 g/dL (33.0-36.5); MEAN CORPUSCULAR VOLUME 93.9 FL (78-98); MEAN PLATELET VOLUME 7.7 FL (7.4-10.4); MONOCYTES # (AUTO) 0.7 X10'3 (0-0.9); MONOCYTES % (AUTO) 4.6 % (2-12); NEUTROPHILS # (AUTO) 12.1 X10'3 (1.8-7.7); NEUTROPHILS % (AUTO) 81.4 % (42-75); PLATELET COUNT 261 X10'3 (140-440); RED BLOOD COUNT 4.86 X10'6 (4.70-6.10); RED CELL DISTRIBUTION WIDTH 14.9 % (11.5-14.5); WHITE BLOOD COUNT 14.9 X10'3 (4.5-11.0)
[2020-02-18] MEDS ORDERED: normal saline 1000ML IV soln IVB ONE (15:45)
[2020-02-18] MEDS ORDERED: morphine 4 MG/ML inj SYRINge IV ONE ×2 (15:45→16:15)
[2020-02-18 15:46] LABS: ALANINE AMINOTRANSFERASE 111 U/L (12-78); ALBUMIN 4.2 G/DL (3.4-5.0); ALBUMIN/GLOBULIN RATIO 1.2 (1.1-1.5); ALKALINE PHOSPHATASE 95 IU/L (46-116); ANION GAP 13 (8-16); BILIRUBIN,TOTAL 0.7 MG/DL (0.1-1.0); BLOOD UREA NITROGEN 18 MG/DL (7-18); BUN/CREATININE RATIO 14.6 (5.4-32.0); CHLORIDE 101 MMOL/L (99-107); CREATININE 1.23 MG/DL (0.60-1.10); ETHANOL < 0.010 GM/DL (0.0-0.010); GLUCOSE 126 MG/DL (70-104); SODIUM 134 MMOL/L (135-145); TOTAL CARBON DIOXIDE 19.7 MMOL/L (24-32); TOTAL PROTEIN 7.6 G/DL (6.4-8.2); eGFR 71 ML/MIN
[2020-02-18 15:47] LABS: LIPASE 1772 U/L (73-393); POTASSIUM 3.8 MMOL/L (3.5-5.1)
[2020-02-18 15:48] LABS: CLARITY,URINE CLEAR (Clear); COLOR,URINE YELLOW (Yellow); GLUCOSE, URINE NEGATIVE (Neg); KETONES,URINE >=80 mg/dl (Neg); LEUKOCYTE ESTERASE ,URINE NEGATIVE (Neg); NITRITES, URINE NEGATIVE (Neg); OCCULT BLOOD,URINE NEGATIVE (Neg); PH,URINE 6.5 (4.8-8.0); PROTEIN,URINE 100 mg/dl (Neg)
[2020-02-18 15:55] LABS: UA COLLECTION TYPE VOIDED
[2020-02-18 15:56] LABS: BACTERIA,URINE NONE SEEN /HPF (Neg); RBC,URINE 0-2 /HPF (0-2); WBC,URINE 0-4 /HPF (0-4)
[2020-02-18 15:57] LABS: MUCUS STRANDS MODERATE /LPF (Neg); SQUAMOUS EPITHELIAL CELL,UR NONE SEEN /LPF (FEW)
[2020-02-18] MEDS ORDERED: proCHLORperazine 10 MG/2 ml inj IV ONE (16:05)
[2020-02-18] MEDS ORDERED: diphenhydrAMINE 50 mg/ml inj IV ONE (16:05)
[2020-02-18 16:06] LABS: ASPARTATE AMINO TRANSFERASE 16 U/L (10-37)
[2020-02-18] MEDS: normal saline 1000ml 1,000 ML IV SCH (16:38)
[2020-02-18] MEDS ORDERED: mag hydrox/Alum hydrox/simeth 30ml oral suspension PO PRN (16:40)
[2020-02-18] MEDS ORDERED: morphine 2 MG/ML inj. syringe IV PRN (16:40)
[2020-02-18] MEDS ORDERED: acetaminophen 325mg tablet PO PRN ×2 (16:40)
[2020-02-18] MEDS ORDERED: magnesium 2GM in 50ml NS 50 ML IV PRN (16:40)
[2020-02-18] MEDS ORDERED: magnesium Cl slow-release 64mg tablet PO PRN (16:40)
[2020-02-18] MEDS ORDERED: potassium CL 10mEq/100ml bag 100 ML IV PRN ×2 (16:40)
[2020-02-18] MEDS ORDERED: potassium Cl 20 mEq SR tablet PO PRN ×2 (16:40)
[2020-02-18] MEDS ORDERED: magnesium 4gm in 100ml NS 100 ML IV PRN (16:40)
[2020-02-18] MEDS ORDERED: HYDROcodone/acetaminophen 5mg/325mg tablet PO PRN (16:40)
[2020-02-18] MEDS ORDERED: metoclopramide 5 mg/ml inj IV PRN (16:40)
[2020-02-18 17:09] LABS: CHOLESTEROL 256 MG/DL (0-200); HDL CHOLESTEROL 32 MG/DL (35-60); LDL CHOLESTEROL 87 MG/DL (50-100); TRIGLYCERIDES 1064 MG/DL (20-135)
--- NOTE | 2020-02-18 17:40 | NUR ---
Received pt via WC from ED. Pt very painful, will give meds as ordered. While getting med pt vomited 100ml. denies continued nausea. Oriented to room & POC. bed low, call light in reach.
[2020-02-18] MEDS: morphine 2 MG/ML inj. syringe IV PRN ×2 (17:49→21:47)
[2020-02-18 18:00] VITALS: BP 154/96
--- NOTE | 2020-02-18 18:36 | NUR ---
Problems reprioritized. Patient report given, questions answered & plan of care reviewed with RAEGAN Galeano.
--- NOTE | 2020-02-18 19:46 | NUR ---
Patient in room [facility]. I have received report from JUSTINO gonsalves and had the opportunity to ask questions and assume patient care.
[2020-02-18] MEDS: K and/or MAG REPLACEMENT MC SCH (19:50)
[2020-02-18] MEDS: HYDROcodone/acetaminophen 10/325mg tab PO PRN (19:55)
[2020-02-19] VITALS: BP 165/100
[2020-02-19] MEDS: HYDROcodone/acetaminophen 10/325mg tab PO PRN ×3 (00:08→23:09)
[2020-02-19] MEDS: normal saline 1000ml 1,000 ML IV SCH ×3 (00:11→22:51)
[2020-02-19] MEDS: ondansetron/PF 4mg/2ml inj IV PRN ×3 (00:11→20:13)
[2020-02-19] MEDS: morphine 2 MG/ML inj. syringe IV PRN ×2 (02:18→07:22)
[2020-02-19 05:18] LABS: BASOPHILS % (AUTO) 0.1 % (0-1); EOSINOPHILS % (AUTO) 0 % (0-6); RED BLOOD COUNT 4.88 X10'6 (4.70-6.10); WHITE BLOOD COUNT 15.6 X10'3 (4.5-11.0)
[2020-02-19 05:21] LABS: HEMATOCRIT 46.2 % (42.0-52.0); LYMPHOCYTES # (AUTO) 0.7 X10'3 (1.1-4.8); LYMPHOCYTES % (AUTO) 4.5 % (21-51); MEAN CORPUSCULAR HEMOGLOBIN 32.7 PG (27.0-31.0); MEAN CORPUSCULAR HGB CONC 34.5 g/dL (33.0-36.5); MEAN CORPUSCULAR VOLUME 94.7 FL (78-98); MEAN PLATELET VOLUME 8.5 FL (7.4-10.4); MONOCYTES # (AUTO) 0.8 X10'3 (0-0.9); NEUTROPHILS # (AUTO) 14.1 X10'3 (1.8-7.7); NEUTROPHILS % (AUTO) 90.4 % (42-75); PLATELET COUNT 208 X10'3 (140-440); RED CELL DISTRIBUTION WIDTH 15.1 % (11.5-14.5)
[2020-02-19 05:38] LABS: ALANINE AMINOTRANSFERASE 80 U/L (12-78); ALBUMIN 3.7 G/DL (3.4-5.0); ALBUMIN/GLOBULIN RATIO 1.1 (1.1-1.5); ALKALINE PHOSPHATASE 78 IU/L (46-116); ANION GAP 10 (8-16); ASPARTATE AMINO TRANSFERASE 30 U/L (10-37); BILIRUBIN,TOTAL 1.1 MG/DL (0.1-1.0); BLOOD UREA NITROGEN 14 MG/DL (7-18); BUN/CREATININE RATIO 13.5 (5.4-32.0); CALCIUM 8.6 MG/DL (8.5-10.1); CHLORIDE 102 MMOL/L (99-107); CREATININE 1.04 MG/DL (0.60-1.10); GLUCOSE 131 MG/DL (70-104); MAGNESIUM 1.6 MG/DL (1.5-2.4); PHOSPHORUS 3.5 MG/DL (2.3-4.5); POTASSIUM 4.3 MMOL/L (3.5-5.1); SODIUM 136 MMOL/L (135-145); eGFR 86 ML/MIN
--- NOTE | 2020-02-19 06:25 | NUR ---
Problems reprioritized. Patient report given, questions answered & plan of care reviewed with PATIENCE RN.
[2020-02-19 06:50] LABS: ANISOCYTOSIS FEW; PLATELET ESTIMATE NORMAL; TOTAL CELLS COUNTED 100
--- NOTE | 2020-02-19 06:59 | NUR ---
Patient in room [facility]. I have received report from MALAIKA CARLIN and had the opportunity to ask questions and assume patient care.
[2020-02-19] MEDS: enoxaparin 40mg/0.4ml syringe SQ SCH (07:22)
[2020-02-19 07:47] VITALS: BP 158/97
[2020-02-19] MEDS: K and/or MAG REPLACEMENT MC SCH ×2 (08:00→20:00)
[2020-02-19] MEDS: diatr meglu/diatrizoate 30ml oral sol.-(3 dose) bottle PO SCH ×3 (08:54→15:04)
[2020-02-19] MEDS ORDERED: haloperidol 5mg tablet PO PRN (09:20)
[2020-02-19] MEDS ORDERED: HYDROmorphone inj. 0.5 MG/0.5 ML DISP.SYRIN IV PRN (09:20)
[2020-02-19] MEDS ORDERED: LORazepam 2 mg/ml vial IV PRN (09:20)
[2020-02-19] MEDS ORDERED: thiamine inj. 100 MG in normal saline 100ml IV soln 100 ML IV ONE (09:20)
[2020-02-19] MEDS ORDERED: haloperidol lactate 5mg/ml inj IM PRN (09:20)
[2020-02-19] MEDS: folic acid 1mg tablet PO SCH (09:28)
[2020-02-19] MEDS: multivitamins, therapeutics tablet PO SCH (09:28)
[2020-02-19] MEDS: thiamine 100mg tablet PO SCH (09:28)
[2020-02-19] MEDS: piperacillin/tazo 3.375gm/50ml 50 ML IV SCH ×3 (10:49→23:09)
--- NOTE | 2020-02-19 11:37 | NUR ---
Initial: Pt admit w/ pancreatitis and etoh abuse hx DX chronic pancreatitis June 2019 per . 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 Currently NPO for contrast imaging per RN; JEFERSON d/w RN regarding MVI/thiamin/folic given etoh hx. TG 1064, cholesterol 256, HDL 32, and lipase 1772 on admit. Advanced to clear liquid diet though pending PO. Pt would benefit from pancreatitis/HH diet ed once more stable prior to discharge. Addendum: 02/19/20 at [address] Amended: Links added.
[2020-02-19 12:00] VITALS: BP 173/109
[2020-02-19] MEDS: HYDROmorphone 1 mg/ml syringe IV PRN ×3 (12:08→20:13)
[2020-02-19] MEDS ORDERED: iohexol 300mg/ml 100ml inj. ONE (15:03)
[2020-02-19] MEDS ORDERED: temazepam 15mg capsule PO PRN ×2 (17:35)
--- NOTE | 2020-02-19 18:11 | NUR ---
Problems reprioritized. Patient report given, questions answered & plan of care reviewed with Herson.
[2020-02-19] MEDS ORDERED: MIRT15TA PO (19:49)
[2020-02-19 19:51] VITALS: BP 157/100
[2020-02-19] MEDS: lactobacillus rhamnosus 10,000 MMU CELLS/CAPSULE PO SCH (20:13)
[2020-02-20] VITALS: BP 149/97
[2020-02-20] MEDS: HYDROmorphone 1 mg/ml syringe IV PRN ×2 (00:16→04:42)
[2020-02-20 05:31] LABS: BASOPHILS % (AUTO) 0.1 % (0-1); EOSINOPHILS % (AUTO) 0.3 % (0-6); LYMPHOCYTES # (AUTO) 0.9 X10'3 (1.1-4.8); LYMPHOCYTES % (AUTO) 6.5 % (21-51); MEAN CORPUSCULAR HEMOGLOBIN 33.4 PG (27.0-31.0); MEAN CORPUSCULAR VOLUME 95.5 FL (78-98); MEAN PLATELET VOLUME 8.9 FL (7.4-10.4); NEUTROPHILS # (AUTO) 12.3 X10'3 (1.8-7.7); NEUTROPHILS % (AUTO) 86.1 % (42-75); PLATELET COUNT 161 X10'3 (140-440); RED CELL DISTRIBUTION WIDTH 14.7 % (11.5-14.5); WHITE BLOOD COUNT 14.3 X10'3 (4.5-11.0)
[2020-02-20 05:38] LABS: ALANINE AMINOTRANSFERASE 44 U/L (12-78); ALBUMIN 2.9 G/DL (3.4-5.0); ALBUMIN/GLOBULIN RATIO 0.8 (1.1-1.5); ALKALINE PHOSPHATASE 60 IU/L (46-116); ANION GAP 8 (8-16); ASPARTATE AMINO TRANSFERASE 18 U/L (10-37); BILIRUBIN,TOTAL 1.6 MG/DL (0.1-1.0); BLOOD UREA NITROGEN 11 MG/DL (7-18); BUN/CREATININE RATIO 10.3 (5.4-32.0); CALCIUM 8.5 MG/DL (8.5-10.1); CHLORIDE 99 MMOL/L (99-107); CREATININE 1.07 MG/DL (0.60-1.10); GLUCOSE 103 MG/DL (70-104); MAGNESIUM 1.6 MG/DL (1.5-2.4); POTASSIUM 3.7 MMOL/L (3.5-5.1); SODIUM 134 MMOL/L (135-145); TOTAL CARBON DIOXIDE 26.8 MMOL/L (24-32); TOTAL PROTEIN 6.6 G/DL (6.4-8.2); eGFR 83 ML/MIN
--- NOTE | 2020-02-20 07:08 | NUR ---
Patient in room [facility] 350[facility]. I have received report from RAEGAN CRANDALL and had the opportunity to ask questions and assume patient care.
[2020-02-20] MEDS: thiamine 100mg tablet PO SCH (07:54)
[2020-02-20] MEDS: piperacillin/tazo 3.375gm/50ml 50 ML IV SCH ×2 (07:54→16:07)
[2020-02-20] MEDS: lactobacillus rhamnosus 10,000 MMU CELLS/CAPSULE PO SCH ×2 (07:54→20:25)
[2020-02-20] MEDS: folic acid 1mg tablet PO SCH (07:54)
[2020-02-20] MEDS: multivitamins, therapeutics tablet PO SCH (07:54)
[2020-02-20] MEDS: HYDROcodone/acetaminophen 10/325mg tab PO PRN (07:55)
[2020-02-20] MEDS: enoxaparin 40mg/0.4ml syringe SQ SCH (07:56)
[2020-02-20] MEDS: normal saline 1000ml 1,000 ML IV SCH ×2 (07:58→17:09)
[2020-02-20 08:00] VITALS: BP 165/94
[2020-02-20] MEDS ORDERED: folic acid inj. 2 MG, thiamine inj. 100 MG, MVI, adult No.4 with vit. K 10 ML in dextro... IV SCH ×4 (08:00)
[2020-02-20] MEDS: K and/or MAG REPLACEMENT MC SCH ×2 (08:00→20:00)
[2020-02-20] MEDS ORDERED: CADD PCA waste documentation MC PRN (09:55)
[2020-02-20] MEDS ORDERED: naloxone 0.4 mg/ml inj IV PRN (09:55)
[2020-02-20 11:00] VITALS: BP 165/104
[2020-02-20] MEDS: HYDROmorphone/NS 1 mg/ml CADD 50 ML IV SCH ×8 (11:00→23:00)
--- NOTE | 2020-02-20 13:12 | NUR ---
Nutrition consult "pancreatitis": Pt admit w/ pancreatitis and etoh abuse hx DX chronic pancreatitis June 2019 per MD. 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 Advanced to clear liquid diet from NPO receiving PO thiamin, folic, MVI for etoh. PO 75% clears last night w/ abdominal pain noted per EMR. Remeron to start tonight per med list. Given chronic pancreatitis hx pt would benefit from pancreatic enzymes w/ meals; JEFERSON d/w RN. TG 1064, cholesterol 256, HDL 32, and lipase 1772 on admit. Pt needs pancreatitis/HH diet eds once more stable prior to discharge. LBM 02/17. Will continue to monitor. Rec: 1. advance diet as medically indicated to heart healthy/low-fat/cholesterol 2. monitor for ONS needs as diet advances 3. bowel care per rx 4. thiamin, folic, MVI for etoh 5. pancreatic enzymes w/ meals if MD agreeable given hx 6. wt per rx 7. pancreatitis/HH diet eds once stable prior to discharge Addendum: 02/20/20 at [address] Amended: Links added.
[2020-02-20 18:00] VITALS: BP 114/57
--- NOTE | 2020-02-20 18:46 | NUR ---
Problems reprioritized. Patient report given, questions answered & plan of care reviewed with RAEGAN CRANDALL.
[2020-02-20] MEDS: LORazepam 1 MG tablet PO PRN (18:51)
[2020-02-20] MEDS: mirtazapine 15mg tablet PO SCH (20:25)
[2020-02-20] MEDS: Neutra Phos packet PO SCH (20:25)
[2020-02-20] MEDS: LIPASE/PROTEASE/AMYLASE 16,800 UNIT CAPSULE.DR PO SCH (20:26)
[2020-02-21] VITALS: BP 158/93
[2020-02-21] MEDS: piperacillin/tazo 3.375gm/50ml 50 ML IV SCH ×4 (00:57→23:32)
[2020-02-21] MEDS: HYDROmorphone/NS 1 mg/ml CADD 50 ML IV SCH ×7 (01:00→13:00)
[2020-02-21] MEDS: normal saline 1000ml 1,000 ML IV SCH ×3 (04:38→23:00)
[2020-02-21] MEDS: magnesium hydroxide 30ml (MOM) UD suspension PO PRN ×2 (05:00→10:18)
[2020-02-21 06:06] LABS: BASOPHILS % (AUTO) 0.1 % (0-1); EOSINOPHILS # (AUTO) 0.1 X10'3 (0-0.9); EOSINOPHILS % (AUTO) 1.1 % (0-6); HEMATOCRIT 38.2 % (42.0-52.0); HEMOGLOBIN 13.3 g/dl (14.0-17.9); LYMPHOCYTES # (AUTO) 1.4 X10'3 (1.1-4.8); LYMPHOCYTES % (AUTO) 12.8 % (21-51); MEAN CORPUSCULAR HEMOGLOBIN 33.5 PG (27.0-31.0); MEAN CORPUSCULAR HGB CONC 34.8 g/dL (33.0-36.5); MEAN CORPUSCULAR VOLUME 96.2 FL (78-98); MEAN PLATELET VOLUME 8.9 FL (7.4-10.4); MONOCYTES % (AUTO) 8.7 % (2-12); NEUTROPHILS # (AUTO) 8.6 X10'3 (1.8-7.7); NEUTROPHILS % (AUTO) 77.3 % (42-75); PLATELET COUNT 163 X10'3 (140-440); RED BLOOD COUNT 3.97 X10'6 (4.70-6.10); RED CELL DISTRIBUTION WIDTH 14.2 % (11.5-14.5); WHITE BLOOD COUNT 11.1 X10'3 (4.5-11.0)
--- NOTE | 2020-02-21 06:17 | NUR ---
Patient in room [facility] 350[facility]. I have received report from RAEGAN CRANDALL and had the opportunity to ask questions and assume patient care.
[2020-02-21 06:23] LABS: ALANINE AMINOTRANSFERASE 32 U/L (12-78); ALBUMIN 2.8 G/DL (3.4-5.0); ALBUMIN/GLOBULIN RATIO 0.7 (1.1-1.5); ALKALINE PHOSPHATASE 64 IU/L (46-116); ANION GAP 7 (8-16); ASPARTATE AMINO TRANSFERASE 17 U/L (10-37); BILIRUBIN,TOTAL 1.9 MG/DL (0.1-1.0); BLOOD UREA NITROGEN 12 MG/DL (7-18); BUN/CREATININE RATIO 10.8 (5.4-32.0); CALCIUM 8.7 MG/DL (8.5-10.1); CHLORIDE 100 MMOL/L (99-107); CREATININE 1.11 MG/DL (0.60-1.10); GLUCOSE 89 MG/DL (70-104); MAGNESIUM 1.9 MG/DL (1.5-2.4); PHOSPHORUS 2.3 MG/DL (2.3-4.5); POTASSIUM 3.6 MMOL/L (3.5-5.1); SODIUM 135 MMOL/L (135-145); TOTAL CARBON DIOXIDE 27.6 MMOL/L (24-32); TOTAL PROTEIN 6.6 G/DL (6.4-8.2); eGFR 79 ML/MIN
[2020-02-21 07:00] VITALS: BP 152/87
[2020-02-21] MEDS: LIPASE/PROTEASE/AMYLASE 16,800 UNIT CAPSULE.DR PO SCH ×4 (07:48→20:43)
[2020-02-21] MEDS: lactobacillus rhamnosus 10,000 MMU CELLS/CAPSULE PO SCH ×2 (07:49→20:36)
[2020-02-21] MEDS: thiamine 100mg tablet PO SCH (07:49)
[2020-02-21] MEDS: Neutra Phos packet PO SCH ×2 (07:49→20:44)
[2020-02-21] MEDS: multivitamins, therapeutics tablet PO SCH (07:49)
[2020-02-21] MEDS: folic acid 1mg tablet PO SCH (07:49)
[2020-02-21] MEDS: enoxaparin 40mg/0.4ml syringe SQ SCH (07:50)
[2020-02-21] MEDS: K and/or MAG REPLACEMENT MC SCH ×2 (07:50→20:00)
[2020-02-21 09:44] LABS: LIPASE 1078 U/L (73-393)
[2020-02-21 11:00] VITALS: BP_SYST 145; BP_SYST 152; BP_DIAS 87; BP_DIAS 89
--- NOTE | 2020-02-21 14:21 | NUR ---
F/u for consult: Pt seen at bedside for written and verbal pancreatitis and heart healthy nutrition therapy educations. Pt recalls receiving nutrition therapy education for pancreatitis at past visit and that it is recommended to follow a low fat diet and to avoid alcohol. RD further encouraged following these recommendations. Pt diagnosed with chronic pancreatitis June 2019 per ED report, pt currently receiving pancreatic enzymes during admit however pt denies receiving rx for it at the time of diagnosis. RD encouraged pt to f/u with MD regarding possible home rx. Pt also encouraged to d/w MD for further recommendations for CHOL management. Pt verbalized understanding and able to discuss both educations provided. All questions were answered at this time. RD contact information provided and pt encouraged to reach out if needed. Pt continues on clear liquid diet, documented with refusals and 75% PO intake. Pt endorses a good appetite and reports no pain with PO as long as he takes small sips. Pt denies food allergies or difficulty chewing/swallowing. Pt s/p CT which does not show pseudocyst per MD notes. LB 02/17, received PRN bowel care for the first time today. Will continue to follow closely and monitor need for nutrition intervention. Rec: 1. advance diet as medically indicated to heart healthy/low-fat/cholesterol 2. monitor for ONS needs as diet advances 3. bowel care per rx 4. thiamine, folic, MVI for etoh 5. pancreatic enzymes with meals 6. scaled wt per rx Addendum: 02/21/20 at [address] Amended: Links added.
[2020-02-21] MEDS ORDERED: HYDROmorphone 1 mg/ml syringe IV PRN (15:25)
[2020-02-21] MEDS ORDERED: HYDROmorphone inj. 0.5 MG/0.5 ML DISP.SYRIN IV PRN (15:25)
[2020-02-21] MEDS ORDERED: CADD PCA waste documentation MC PRN (16:50)
[2020-02-21 18:00] VITALS: BP 161/91
--- NOTE | 2020-02-21 18:38 | NUR ---
Problems reprioritized. Patient report given, questions answered & plan of care reviewed with RAEGAN CRANDALL.
[2020-02-21] MEDS: ondansetron/PF 4mg/2ml inj IV PRN (20:06)
[2020-02-21] MEDS: LORazepam 1 MG tablet PO PRN (20:36)
[2020-02-21] MEDS: mirtazapine 15mg tablet PO SCH (20:36)
[2020-02-21] MEDS: oxyCODONE IR 5mg (immed. release) tablet PO PRN (20:37)
[2020-02-22] VITALS: BP 141/91
[2020-02-22 05:03] LABS: BASOPHILS % (AUTO) 0.1 % (0-1); EOSINOPHILS # (AUTO) 0.1 X10'3 (0-0.9); EOSINOPHILS % (AUTO) 1.5 % (0-6); HEMATOCRIT 36.7 % (42.0-52.0); HEMOGLOBIN 12.7 g/dl (14.0-17.9); LYMPHOCYTES % (AUTO) 12.2 % (21-51); MEAN CORPUSCULAR HEMOGLOBIN 33.4 PG (27.0-31.0); MEAN CORPUSCULAR HGB CONC 34.7 g/dL (33.0-36.5); MEAN CORPUSCULAR VOLUME 96.3 FL (78-98); MEAN PLATELET VOLUME 8.6 FL (7.4-10.4); MONOCYTES % (AUTO) 11.4 % (2-12); NEUTROPHILS # (AUTO) 6.3 X10'3 (1.8-7.7); NEUTROPHILS % (AUTO) 74.8 % (42-75); PLATELET COUNT 172 X10'3 (140-440); RED BLOOD COUNT 3.81 X10'6 (4.70-6.10); RED CELL DISTRIBUTION WIDTH 13.8 % (11.5-14.5); WHITE BLOOD COUNT 8.5 X10'3 (4.5-11.0)
[2020-02-22 05:18] LABS: ALANINE AMINOTRANSFERASE 39 U/L (12-78); ALBUMIN 2.6 G/DL (3.4-5.0); ALBUMIN/GLOBULIN RATIO 0.7 (1.1-1.5); ALKALINE PHOSPHATASE 115 IU/L (46-116); ANION GAP 9 (8-16); ASPARTATE AMINO TRANSFERASE 28 U/L (10-37); BILIRUBIN,TOTAL 1.4 MG/DL (0.1-1.0); BLOOD UREA NITROGEN 8 MG/DL (7-18); BUN/CREATININE RATIO 9.2 (5.4-32.0); CALCIUM 8.6 MG/DL (8.5-10.1); CHLORIDE 101 MMOL/L (99-107); CREATININE 0.87 MG/DL (0.60-1.10); GLUCOSE 92 MG/DL (70-104); LIPASE 541 U/L (73-393); MAGNESIUM 2.3 MG/DL (1.5-2.4); PHOSPHORUS 2.8 MG/DL (2.3-4.5); POTASSIUM 3.5 MMOL/L (3.5-5.1); SODIUM 135 MMOL/L (135-145); TOTAL CARBON DIOXIDE 25.1 MMOL/L (24-32); TOTAL PROTEIN 6.5 G/DL (6.4-8.2); eGFR > 90 ML/MIN
--- NOTE | 2020-02-22 06:00 | NUR ---
Patient in room [facility]. I have received report from RAEGAN Bains and had the opportunity to ask questions and assume patient care.
[2020-02-22] MEDS: K and/or MAG REPLACEMENT MC SCH (06:34)
[2020-02-22] MEDS: LIPASE/PROTEASE/AMYLASE 16,800 UNIT CAPSULE.DR PO SCH ×2 (07:48→12:45)
[2020-02-22] MEDS: lactobacillus rhamnosus 10,000 MMU CELLS/CAPSULE PO SCH (07:49)
[2020-02-22] MEDS: multivitamins, therapeutics tablet PO SCH (07:49)
[2020-02-22] MEDS: Neutra Phos packet PO SCH (07:49)
[2020-02-22] MEDS: piperacillin/tazo 3.375gm/50ml 50 ML IV SCH (07:49)
[2020-02-22] MEDS: folic acid 1mg tablet PO SCH (07:49)
[2020-02-22] MEDS: enoxaparin 40mg/0.4ml syringe SQ SCH (07:50)
[2020-02-22] MEDS: thiamine 100mg tablet PO SCH (07:50)
[2020-02-22 08:00] VITALS: BP 130/88
[2020-02-22] MEDS: normal saline 1000ml 1,000 ML IV SCH (08:12)
[2020-02-22] MEDS: oxyCODONE IR 5mg (immed. release) tablet PO PRN ×2 (08:12→12:45)
[2020-02-22 11:58] VITALS: BP 137/87
[2020-02-22] MEDS ORDERED: CHLO25CA10 PO (15:38)
[2020-02-22] MEDS ORDERED: OXYC10TA47 PO (15:38)
[2020-02-22] MEDS ORDERED: LIPA1CAP30 PO (15:38)
[2020-02-22] MEDS ORDERED: ONDA4TAB12 PO (15:38)
--- NOTE | 2020-02-22 16:33 | NUR ---
patient discharged home into the care of significant other. Patient alert, oriented and appropriate for discharge. Patient IV removed. Patient not on tele. Patient will follow up with primary care provider in one week. Patient verbalized understanding of discharge instructions. Patient medications sent to preferred pharmacy on file. Patient narcotic prescription given to patient and a copy is available in the chart.
--- NOTE | 2020-02-22 17:20 | NUR ---
okayed taking Oxycodone and librium simultaneously.
[2020-02-22] MEDS ORDERED: FENO145T26 PO (17:42)
--- NOTE | 2020-02-22 17:46 | NUR ---
MD ordered fenofibrates for patient after discharge, attempted to contact patient at number listed on file, phone number not in service.
== END 2020-02-22 16:34 | disposition home or self-care (01) | DRG 439 ==
LOC: ER 15:12 → ED HOLD 16:38 → SUR 3N 17:25
PROVIDERS: ADMIT Family Medicine; ATTEND Family Medicine
DX: K86.0 Alcohol-induced chronic pancreatitis (principal); E87.1 Hypo-osmolality and hyponatremia; N17.9 Acute kidney failure, unspecified; E78.1 Pure hyperglyceridemia; E78.5 Hyperlipidemia, unspecified; F10.20 Alcohol dependence, uncomplicated; F17.210 Nicotine dependence, cigarettes, uncomplicated; Z79.899 Other long term (current) drug therapy
CPT/HCPCS: 36415; 74160; 76937; 80053; 80061; 80320; 81001; 83605; 83690; 83735; 84100; 84145; 85025; 87040; 87081; 93005; 99285; G0378; J0780; J1170; J1200; J1650; J2270; J2405; J2543; J2765; J7030; Q9963; Q9967